=== PATIENT | female | born 1965 | race American Indian/Alaskan Native ===

== ENCOUNTER 2018-04-13 08:38 | Day surgery (SDC) | payer BC ==
[2018-04-13 09:33] VITALS: O2SAT 100
--- NOTE | 2018-04-13 10:09 | CP.SDSHP ---
Same Day Surgery H & P - History Proposed Procedure: colonoscopy Pre-Op Diagnosis: screening - Previous Medical/Surgical History Cardiac: Hypertension Endocrine/Metabolic: Obesity - Allergies Allergies: Allergies No Known Allergies Allergy (Verified 04/13/18 09:00) - Physical Exam General Appearance: NAD Vital Signs: Vital Signs 04/13/18 09:00 Temperature 97.8 F Pulse Rate 70 Respiratory 18 Rate Blood Pressure 152/88 H O2 Sat by Pulse 100 Oximetry Mental Status: Alert & Oriented x3 Neuro: WNL Heart: WNL Lungs: WNL GI: WNL - {Optional Preform as Required} Abdomen: WNL - Impression Pt. Evaluated Today:Candidate for Anesthesia & Procedure: Yes - Date & Time Date: 04/13/18 Time: 10:09 Short Stay Discharge - Short Stay Discharge Admitting Diagnosis/Reason for Visit: ENCOUNTER FOR SCREENING FOR MALIGNANT NEOPLASM OF Disposition: HOME/ ROUTINE
[2018-04-13] MEDS ORDERED: Propofol 10 mg/ml Inj (20 ML) ONE ×2 (10:10→10:29)
[2018-04-13] MEDS ORDERED: Lidocaine Hydrochloride 5 ML INJ ONE (10:11)
[2018-04-13 10:55] VITALS: TEMP 98.2
[2018-04-13 11:30] VITALS: BP 164/110; PULSE 78; RESP 18
== END 2018-04-13 11:57 | disposition home or self-care (01) ==
LOC: C.ENDO 08:38
PROVIDERS: ATTEND Internal Medicine Gastroenterology
DX: K64.8 Other hemorrhoids (principal)
CPT/HCPCS: 45378; J2704

== ENCOUNTER 2019-01-22 11:42 | Observation (INO) | payer BC ==
--- NOTE | 2019-01-22 13:05 | C.PDOC ---
History Of Present Illness 53 y/o female with a PMHx of HTN, hypercholesterolemia, and smoking, comes in to the ED for evaluation of chest pain that started last night around 9PM. Pain is localized under the left breast, described as sharp and stabbing. Associated with SOB. Pain worsens with palpation and on deep inspiration. Patient reports this is a first time occurrence, denies having had chest pain in the past. Denies any recent trauma or fall. No recent surgery. No family hx of blood clots or hemoptysis. Otherwise patient denies any fever, chills, night sweats, dizziness, headache, abdominal pain, back pain, nausea, vomiting, or change in bowel movements. Time Seen by Provider: 01/22/19 13:04 Chief Complaint (Nursing): Chest Pain History Per: Patient History/Exam Limitations: no limitations Onset/Duration Of Symptoms: Days (x 1) Current Symptoms Are (Timing): Still Present Associated Symptoms: Dyspnea Exacerbating Factors: Deep Breathing Alleviating Factors: None Recent travel outside of the [place]: No Past Medical History Reviewed: Historical Data, Nursing Documentation, Vital Signs Vital Signs: Last Vital Signs Temp 98.3 F 01/22/19 11:55 Pulse 73 01/22/19 11:55 Resp 22 01/22/19 11:55 BP 150/106 H 01/22/19 11:55 Pulse Ox 100 01/22/19 11:55 - Medical History PMH: HTN, Hypercholesterolemia Denies: Chronic Kidney Disease Family History: States: No Known Family Hx - Social History Hx Tobacco Use: Yes Hx Alcohol Use: Yes Hx Substance Use: No - Immunization History Hx Tetanus Toxoid Vaccination: No Hx Influenza Vaccination: No Hx Pneumococcal Vaccination: No Review Of Systems Constitutional: Negative for: Fever, Chills, Sweats, Weakness Eyes: Negative for: Vision Change ENT: Negative for: Ear Pain, Ear Discharge, Nose Pain, Nose Congestion, Mouth Pain Cardiovascular: Positive for: Chest Pain. Negative for: Palpitations Respiratory: Positive for: Shortness of Breath. Negative for: Cough, Wheezing Gastrointestinal: Negative for: Nausea, Vomiting, Abdominal Pain, Diarrhea Genitourinary: Negative for: Dysuria, Frequency Musculoskeletal: Negative for: Back Pain Skin: Negative for: Rash Neurological: Negative for: Weakness, Numbness, Headache, Dizziness Physical Exam - Physical Exam Appears: Non-toxic, No Acute Distress Skin: Warm, Dry, No Diaphoretic Head: Atraumatic, Normacephalic Eye(s): bilateral: Normal Inspection, PERRL, EOMI Nose: Normal Oral Mucosa: Moist Throat: Normal, No Erythema, No Exudate Neck: Trachea Midline, No Midline Cervical Tenderness, Supple, Other (No meningeal signs) Lymphatic: Normal Exam, No Adenopathy Chest: Symmetrical, Tenderness (Reproducible chest pain on palpation of chest wall) Cardiovascular: Rhythm Regular, No Friction Rub, No Murmur Respiratory: No Rales, No Rhonchi, No Wheezing Gastrointestinal/Abdominal: Soft, No Tenderness, No Mass, No Distention, No Guarding Back: Normal Inspection, No CVA Tenderness, No Vertebral Tenderness Extremity: No Swelling Extremity: Bilateral: Normal Color And Temperature Pulses: Left Dorsalis Pedis: Normal, Right Dorsalis Pedis: Normal Neurological/Psych: Oriented x3, Normal Speech, Normal Cognition, Normal Motor Gait: Steady ED Course And Treatment - Laboratory Results Result Diagrams: 01/22/19 13:32 01/22/19 13:32 ECG: Interpreted By Mo ECG Rhythm: Sinus Rhythm Interpretation Of ECG: No STEMI Rate From EC O2 Sat by Pulse Oximetry: 100 (on RA) Pulse Ox Interpretation: Normal Medical Decision Making Medical Decision Makin53 y/o female with a PMHx of HTN, hypercholesterolemia, smoking, comes in to the ED for evaluation of sharp stabbing chest pain, under left breast, onset last night around 9PM. Associated with SOB. Pain worsens with palpation and on deep inspiration. ASA ordered, no chest pain radiating to back. Lungs CTA b/l. Impression: PE vs chest wall pain vs ACS Heart score: 4+ Age: 1 RF: 2 Story: 1 EK Trop: pending EK, nsr, no stemi Plan: - Labs - EKG - CTA chest - NS IV fluids - ASA 325 x 1 - Reassess 1200 Elevated Cr- VQ scan ordered. CXR ordered. labs otherwise largely unremarkable pt in NAD. 1416 trop unremarkable Appreciate consult w/ Dr. Lopez: to admit to her service. Pt in NAD, agreeable to plan. CXR unremarkable: reviewed by myself Disposition - Disposition Disposition Time: 14:19 Condition: STABLE Forms: [facility] (Albanian) - Clinical Impression Clinical Impression: Chest pain, Pleuritic pain
[2019-01-22] MEDS ORDERED: Sodium Chloride 0.9% 1,000 ML IV SCH (13:15)
[2019-01-22 13:40] LABS: BASO # 0.1 K/uL (0.0-0.2); BASO % 1.1 % (0.0-2.0); EOS # 0.1 K/uL (0.0-0.7); EOS % 1.2 % (0.0-4.0); LYMPH # 1.5 K/uL (1.0-4.3); LYMPH % 30.3 % (20.0-40.0); MEAN CELL VOLUME 97.1 fL (81.0-99.0); MEAN CORPUSCULAR HEMOGLOBIN 31.8 pg (27.0-31.0); MEAN CORPUSCULAR HGB CONC 32.8 g/dL (33.0-37.0); MEAN PLATELET VOLUME 8.2 fL (7.2-11.7); MONO # 0.5 K/uL (0.0-0.8); MONO % 11.1 % (0.0-10.0); NEUT # 2.8 K/uL (1.8-7.0); NEUT % 56.3 % (50.0-75.0); NRBC % 0.1 % (0.0-2.0); RBC 3.76 Mil/uL (3.80-5.20); WHITE BLOOD COUNT 4.9 K/uL (4.8-10.8)
[2019-01-22] MEDS ORDERED: Sodium Chloride 0.9% 1,000 ML ONE (13:43)
[2019-01-22 13:55] LABS: ALB/GLOB RATIO 1.4 (1.0-2.1); ALBUMIN 4.1 g/dL (3.5-5.0); ALT/SGPT 12 U/L (9-52); AST/SGOT 28 U/L (14-36); BLOOD UREA NITROGEN 36 mg/dL (7-17); CALCIUM 8.6 mg/dl (8.6-10.4); GFR NON-AFRICAN AMERICAN 26
[2019-01-22 14:04] LABS: B-TYPE NATRIURETIC PEPTIDE 284 pg/mL (0-900)
--- NOTE | 2019-01-22 14:35 | CP.PCM.HP ---
<Ketty Gil - Last Filed: 01/22/19 16:47> History of Present Illness - History of Present Illness History of Present Illness: CC: Left rib pain Patient is a 53 year old female with pmhx of HTN, hypertensive nephropathy, HLD, osteopenia who presents to ED today for evaluation of left lower rib pain. Pt reports pain started Tuesday evening while pt was at a [employer] party. She reports episodes of pain were initially intermittent, however have increased in frequency and severity. She describes the pain as stabbing, 10/10, worse with movement, coughing and deep inspiration. Patient reports similar symptoms 23 years ago after pt sustained rib fractures 2/2 trauma. Patient denies any inciting event including trauma, denies prolonged sedentary activity or prior history of clots. Patient denies chest pain, palpitations, radiating pain to arms/neck/jaw, nausea, LE pain/edema. 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, social alcohol, no drugs, school worker Present on Admission - Present on Admission Any Indicators Present on Admission: No Review of Systems - Constitutional Constitutional: absent: Chills, Fever - EENT Eyes: absent: Blurred Vision Nose/Mouth/Throat: absent: Dysphagia, Neck Pain - Cardiovascular Cardiovascular: absent: Chest Pain, Dyspnea, Pain Radiating to Arm/Neck/Jaw, Palpitations, Pedal Edema - Respiratory Respiratory: Cough (chronic), Pain on Inspiration, Pain with Coughing - Gastrointestinal Gastrointestinal: absent: Abdominal Pain, Dyspepsia, Heartburn, Nausea - Musculoskeletal Musculoskeletal: Limited Range of Motion (2/2 pain) - Neurological Neurological: absent: Headaches Past Patient History - Past Medical History & Family History Past Medical History?: Yes - Past Social History Smoking Status: Heavy Smoker > 10 Cigarettes Daily - CARDIAC Hx Hypercholesterolemia: Yes Hx Hypertension: Yes - PULMONARY Hx Respiratory Disorders: No - NEUROLOGICAL Hx Neurological Disorder: No - HEENT Hx HEENT Problems: No - RENAL Hx Chronic Kidney Disease: No - ENDOCRINE/METABOLIC Hx Endocrine Disorders: No - HEMATOLOGICAL/ONCOLOGICAL Hx Blood Disorders: No - INTEGUMENTARY Hx Dermatological Problems: No - MUSCULOSKELETAL/RHEUMATOLOGICAL Hx Musculoskeletal Disorders: No - GASTROINTESTINAL Hx Gastrointestinal Disorders: No - GENITOURINARY/GYNECOLOGICAL Hx Genitourinary Disorders: No - PSYCHIATRIC Hx Substance Use: No - SURGICAL HISTORY Hx Surgeries: Yes Hx Section: Yes (X3) Hx Gastric Bypass Surgery: Yes (LAP BAND) Hx Herniorrhaphy: Yes (X2 WITH MESH, HAS VENTRAL HERNIA AT PRESENT) Other/Comment: CYSTOSCOPY - ANESTHESIA Hx Anesthesia: Yes Hx Anesthesia Reactions: No Meds Home Medications: Home Medication List Medication Instructions Recorded Confirmed Type Aspirin [Adult Low Dose Aspirin EC] 81 mg PO DAILY #30 tablet. 01/23/19 Rx Atorvastatin Calcium 20 mg PO DAILY #30 tablet 01/23/19 Rx Labetalol [Trandate] 200 mg PO TID 30 Days tab 01/23/19 Rx Allergies/Adverse Reactions: Allergies Allergy/AdvReac Type Severity Reaction Status Date / Time No Known Allergies Allergy Verified 01/22/19 11:59 Physical Exam - Constitutional Appears: Non-toxic, No Acute Distress - Head Exam Head Exam: ATRAUMATIC, NORMAL INSPECTION, NORMOCEPHALIC - Eye Exam Eye Exam: EOMI, Normal appearance - ENT Exam ENT Exam: Mucous Membranes Moist, Normal Exam - Neck Exam Neck exam: Positive for: Normal Inspection - Respiratory Exam Respiratory Exam: Chest Wall Tenderness, Decreased Breath Sounds, NORMAL BREATHING PATTERN. absent: Wheezes Additional comments: TTP left lower rib, costochondral insertion later to mid clavicular - Cardiovascular Exam Cardiovascular Exam: REGULAR RHYTHM, +S1, +S2. absent: Tachycardia - GI/Abdominal Exam GI & Abdominal Exam: Normal Bowel Sounds, Soft. absent: Distended, Tenderness Additional comments: vertical incision, well healed - Extremities Exam Extremities exam: Positive for: normal inspection. Negative for: calf tenderness, pedal edema - Neurological Exam Neurological exam: Alert, Oriented x3 - Psychiatric Exam Psychiatric exam: Normal Affect, Normal Mood - Skin Skin Exam: Dry, Intact, Normal Color, Warm Results - Vital Signs Recent Vital Signs: Last Vital Signs Temp 98.3 F 01/22/19 11:55 Pulse 69 01/22/19 13:44 Resp 19 01/22/19 13:44 BP 140/95 H 01/22/19 13:44 Pulse Ox 100 01/22/19 14:20 - Labs Result Diagrams: 01/22/19 13:32 01/22/19 13:32 Labs: Laboratory Results - last 24 hr 01/22/19 01/22/19 13:32 13:32 WBC 4.9 RBC 3.76 L Hgb 12.0 Hct 36.5 MCV 97.1 MCH 31.8 H MCHC 32.8 L RDW 14.0 Plt Count 327 MPV 8.2 Neut % (Auto) 56.3 Lymph % (Auto) 30.3 [place] % (Auto) 11.1 H Eos % (Auto) 1.2 Baso % (Auto) 1.1 Neut # (Auto) 2.8 Lymph # (Auto) 1.5 [place] # (Auto) 0.5 Eos # (Auto) 0.1 Baso # (Auto) 0.1 Sodium 138 Potassium 4.3 Chloride 106 Carbon Dioxide 24 Anion Gap 13 BUN 36 H Creatinine 2.0 H Est GFR ( Amer) 32 Est GFR (Non-Af Amer) 26 Random Glucose 104 Calcium 8.6 Total Bilirubin 0.5 AST 28 ALT 12 Alkaline Phosphatase 131 H Troponin I < 0.0120 NT-Pro-B Natriuret Pep 284 Total Protein 7.0 Albumin 4.1 Globulin 2.9 Albumin/Globulin Ratio 1.4 Assessment & Plan - Assessment and Plan (Free Text) Assessment: 53 year old female w/ pmhx of HTN, hypertensive nephropathy, HLD, osteopenia admitted for evaluation of chest pain Plan: Chest pain EKG: NSR, LVH Troponin x1 negative, f/u remaining pBNP 284 CXR: no acute pathology V/Q: low probability of PE HTN continue home med, labetalol 200mg po TID hold IVF HHD, low Na+ CKD avoid nephrotoxic drugs/imaging HLD home home lipitor 20, start crestor 10mg HS f/u lipid panel Ppx VTE: heparin 5000 q8 GI: protonix Dispo: Symptoms more likely consistent with costchondritis. D/C pending acute cardio/pulm workup Discussed w/ Dr. Rosas -Ketty Gil, PGY-1 <Nelly Rosas - Last Filed: 01/28/19 11:54> Results - Vital Signs Recent Vital Signs: Last Vital Signs Temp 98.3 F 01/23/19 07:25 Pulse 80 01/23/19 13:29 Resp 20 01/23/19 07:25 BP 151/90 H 01/23/19 07:25 Pulse Ox 100 01/23/19 07:25 - Labs Result Diagrams: 01/23/19 04:19 01/23/19 04:19 Attending/Attestation - Attestation I have personally seen and examined this patient.: Yes I have fully participated in the care of the patient.: Yes I have reviewed all pertinent clinical information: Yes Notes (Text): seen and examined by me 1.chest pain 2.CRF 3.HTN Assessment and the plan discussed with the resident
--- NOTE | 2019-01-22 14:37 | RAD ---
Date of service: 01/22/2019 HISTORY: Chest pain COMPARISON: Comparison made with prior chest radiograph 03/09/2018 TECHNIQUE: Chest PA and lateral views FINDINGS: LUNGS: No active pulmonary disease. PLEURA: No significant pleural effusion identified. No pneumothorax apparent. CARDIOVASCULAR: No aortic atherosclerotic calcification present. Normal cardiac size. No pulmonary vascular congestion. OSSEOUS STRUCTURES: No significant abnormalities. VISUALIZED UPPER ABDOMEN: Note again made of in situ gastric band hardware OTHER FINDINGS: None. IMPRESSION: No active disease
[2019-01-22] MEDS ORDERED: Pantoprazole 40 mg EC Tab PO ONE (15:32)
[2019-01-22] MEDS: Pantoprazole 40 mg EC Tab PO SCH (15:32)
--- NOTE | 2019-01-22 15:53 | NM ---
Date of service: 01/22/2019 COMPARISON: January 22, 2019 TECHNIQUE: 13.2 mCi technetium 99-m Xe-133 Gas. 3.7 mCI technetium 99-m MAA administered intravenously. FINDINGS: VENTILATION COMPONENT: Normal. PERFUSION COMPONENT: Heterogeneous distribution of radionuclide. No geographic, segmental, lobar abnormalities apparent on the present examination. IMPRESSION: Low probability ventilation perfusion scan for pulmonary embolism.
[2019-01-22 15:56] LABS: CK-MB 0.79 ng/mL (0.0-3.38)
[2019-01-22 20:33] LABS: CK-MB 0.76 ng/mL (0.0-3.38)
[2019-01-23 01:41] VITALS: RESP 20
[2019-01-23 04:23] LABS: BASO % 0.8 % (0.0-2.0); EOS # 0.1 K/uL (0.0-0.7); EOS % 2.1 % (0.0-4.0); HEMOGLOBIN 10.9 g/dL (11.0-16.0); LYMPH # 1.9 K/uL (1.0-4.3); LYMPH % 42.2 % (20.0-40.0); MEAN CELL VOLUME 96.7 fL (81.0-99.0); MEAN CORPUSCULAR HEMOGLOBIN 30.8 pg (27.0-31.0); MEAN CORPUSCULAR HGB CONC 31.9 g/dL (33.0-37.0); MEAN PLATELET VOLUME 8.2 fL (7.2-11.7); MONO # 0.5 K/uL (0.0-0.8); MONO % 10.6 % (0.0-10.0); NEUT # 1.9 K/uL (1.8-7.0); NEUT % 44.3 % (50.0-75.0); RBC 3.53 Mil/uL (3.80-5.20); RED CELL DISTRIBUTION WIDTH 14.1 % (11.5-14.5); WHITE BLOOD COUNT 4.4 K/uL (4.8-10.8)
[2019-01-23 04:58] VITALS: O2SAT 100
[2019-01-23 05:24] LABS: PROTHROMBIN TIME 11.1 SECONDS (9.7-12.2)
[2019-01-23 05:45] LABS: CK-MB 0.65 ng/mL (0.0-3.38)
[2019-01-23 06:00] LABS: ALB/GLOB RATIO 1.3 (1.0-2.1); ALBUMIN 3.3 g/dL (3.5-5.0); ALT/SGPT 21 U/L (9-52); AST/SGOT 26 U/L (14-36); BLOOD UREA NITROGEN 31 mg/dL (7-17); CALCIUM 8.7 mg/dl (8.6-10.4); GFR NON-AFRICAN AMERICAN 23
--- NOTE | 2019-01-23 07:47 | CP.PCM.DIS ---
<Junior Bjearano - Last Filed: 01/23/19 15:42> Provider - Provider Date of Admission: 01/22/19 14:15 Attending physician: Nelly Rosas MD Time Spent in preparation of Discharge (in minutes): 40 Diagnosis - Discharge Diagnosis (1) Costochondral pain Status: Acute Hospital Course - Lab Results Lab Results: Most Recent Lab Values WBC 4.4 K/uL (4.8-10.8) L 01/23/19 04:19 RBC 3.53 Mil/uL (3.80-5.20) L 01/23/19 04:19 Hgb 10.9 g/dL (11.0-16.0) L 01/23/19 04:19 Hct 34.1 % (34.0-47.0) 01/23/19 04:19 MCV 96.7 fL (81.0-99.0) 01/23/19 04:19 MCH 30.8 pg (27.0-31.0) 01/23/19 04:19 MCHC 31.9 g/dL (33.0-37.0) L 01/23/19 04:19 RDW 14.1 % (11.5-14.5) 01/23/19 04:19 Plt Count 277 K/uL (130-400) 01/23/19 04:19 MPV 8.2 fL (7.2-11.7) 01/23/19 04:19 Neut % (Auto) 44.3 % (50.0-75.0) L 01/23/19 04:19 Lymph % (Auto) 42.2 % (20.0-40.0) H 01/23/19 04:19 [place] % (Auto) 10.6 % (0.0-10.0) H 01/23/19 04:19 Eos % (Auto) 2.1 % (0.0-4.0) 01/23/19 04:19 Baso % (Auto) 0.8 % (0.0-2.0) 01/23/19 04:19 Neut # (Auto) 1.9 K/uL (1.8-7.0) 01/23/19 04:19 Lymph # (Auto) 1.9 K/uL (1.0-4.3) 01/23/19 04:19 [place] # (Auto) 0.5 K/uL (0.0-0.8) 01/23/19 04:19 Eos # (Auto) 0.1 K/uL (0.0-0.7) 01/23/19 04:19 Baso # (Auto) 0.0 K/uL (0.0-0.2) 01/23/19 04:19 PT 11.1 SECONDS (9.7-12.2) 01/23/19 04:19 INR 1.0 01/23/19 04:19 APTT 29 SECONDS (21-34) 01/23/19 04:19 Sodium 136 mmol/L (132-148) 01/23/19 04:19 Potassium 4.2 mmol/L (3.6-5.2) 01/23/19 04:19 Chloride 110 mmol/L (98-107) H 01/23/19 04:19 Carbon Dioxide 20 mmol/L (22-30) L 01/23/19 04:19 Anion Gap 10 (10-20) 01/23/19 04:19 BUN 31 mg/dL (7-17) H 01/23/19 04:19 Creatinine 2.2 mg/dL (0.7-1.2) H 01/23/19 04:19 Est GFR ( Amer) 28 01/23/19 04:19 Est GFR (Non-Af Amer) 23 01/23/19 04:19 Random Glucose 96 mg/dL (65-105) 01/23/19 04:19 Calcium 8.7 mg/dl (8.6-10.4) 01/23/19 04:19 Total Bilirubin 0.5 mg/dL (0.2-1.3) 01/23/19 04:19 AST 26 U/L (14-36) 01/23/19 04:19 ALT 21 U/L (9-52) 01/23/19 04:19 Alkaline Phosphatase 123 U/L (38-126) 01/23/19 04:19 Total Creatine Kinase 85 U/L (30-135) 01/23/19 04:19 CK-MB (Mass) 0.65 ng/mL (0.0-3.38) 01/23/19 04:19 Troponin I < 0.0120 ng/mL (0.00-0.120) 01/23/19 04:19 NT-Pro-B Natriuret Pep 284 pg/mL (0-900) 01/22/19 13:32 Total Protein 5.9 g/dL (6.3-8.3) L 01/23/19 04:19 Albumin 3.3 g/dL (3.5-5.0) L 01/23/19 04:19 Globulin 2.6 gm/dL (2.2-3.9) 01/23/19 04:19 Albumin/Globulin Ratio 1.3 (1.0-2.1) 01/23/19 04:19 Triglycerides 112 mg/dL (0-149) D 01/22/19 13:32 Cholesterol 126 mg/dL (0-199) 01/22/19 13:32 LDL Cholesterol Direct 58 mg/dL (0-129) 01/22/19 13:32 HDL Cholesterol 64 mg/dL (30-70) 01/22/19 13:32 Lipase 29 U/L (23-300) 01/22/19 13:32 - Hospital Course Hospital Course: HPI: Patient is a 53 year old female with past medical history of hypertension, hypertensive nephropathy, hyperlipidemia, osteopenia who presents to ED today for evaluation of left lower rib pain. She reports pain that started Tuesday evening while she was at a [employer] party. She reports episodes of pain were initially intermittent, however have increased in frequency and severity. She describes the pain as stabbing, 10/10, worse with movement, coughing and deep inspiration. Patient reports similar symptoms 23 years ago after patient sustained rib fractures secondary to trauma. Patient denies any inciting event including trauma, denies prolonged sedentary activity or prior history of clots. Patient denies chest pain, palpitations, radiating pain to arms/neck/jaw, nausea, lower extremity pain/edema. During course of hospital admission: Chest Xray obtained showed no acute findings, no evidence of fractures. Initial EKG obtained demonstrated normal sinus rhythm with no evidence of ST or T wave changes. Serial troponin series obtained were within normal limits. BNP on admission was within normal limits. V/Q Scan ordered by ED demonstrated low probability of pulmonary embolus. Home meds were restarted and patient was monitored overnight for pain likely musculoskeletal in origin. Tylenol was given for pain as needed. Patient endorsed improvement of pain during hospital course, with no inciting events. Patient is medically stable for discharge to home, as per Dr. Rosas. She is instructed to follow up with her primary care provider (Dr. Navarro) within 1 week of discharge for further monitoring and management of all chronic medical conditions. Given patient's renal function, patient was instructed to take Tylenol as needed for musculoskeletal-type pain in lieu of NSAIDs. Patient was also instructed to rest adequately, limit strenuous activity and/or exercise to involved muscles. If symptoms worsen or recur, please return to the ED immediately. The following is a summary of hospital course. For full detail, please refer to EMR. - Date & Time of H&P Date of H&P: 01/23/19 Time of H&P: 15:42 Discharge Exam - Head Exam Head Exam: ATRAUMATIC, NORMAL INSPECTION, NORMOCEPHALIC - Eye Exam Eye Exam: EOMI, Normal appearance, PERRL Pupil Exam: NORMAL ACCOMODATION - ENT Exam ENT Exam: Mucous Membranes Moist, Normal Exam - Neck Exam Neck exam: Full Rom, Normal Inspection - Respiratory Exam Respiratory Exam: Clear to PA & Lateral, NORMAL BREATHING PATTERN, UNREMARKABLE. absent: Accessory Muscle Use, Rales, Rhonchi, Wheezes, Respiratory Distress, Stridor - Cardiovascular Exam Cardiovascular Exam: REGULAR RHYTHM, +S1, +S2 - GI/Abdominal Exam GI & Abdominal Exam: Normal Bowel Sounds, Soft, Unremarkable. absent: Distended, Firm, Guarding, Rebound, Rigid, Tenderness - Extremities Exam Extremities exam: full ROM, normal capillary refill, normal inspection, pedal pulses present - Back Exam Back exam: NORMAL INSPECTION - Neurological Exam Neurological exam: Alert, CN II-XII Intact, Normal Gait, Oriented x3 - Skin Skin Exam: Dry, Intact, Normal Color, Warm Discharge Plan - Discharge Medications Prescriptions: Aspirin [Adult Low Dose Aspirin EC] 81 mg PO DAILY #30 tablet. Atorvastatin Calcium 20 mg PO DAILY #30 tablet Labetalol [Trandate] 200 mg PO TID 30 Days tab - Follow Up Plan Condition: STABLE Disposition: HOME/ ROUTINE Instructions: Heart Healthy Diet, Chest Pain That Is Not Caused by the Heart (DC), Chest Pain (DC), Diet and Health, Aspirin, Atorvastatin, Labetalol Additional Instructions: Patient is medically stable for discharge to home, as per Dr. Rosas. Please take all home medications as currently prescribed. She is instructed to follow up with her primary care provider (Dr. Navarro) within 1 week of discharge for further monitoring and management of all chronic medical conditions. Please also follow up with your [employer] for follow-up monitoring of creatinine level within 1 week. Given patient's renal function, patient was instructed to take Tylenol as needed for musculoskeletal-type pain in lieu of NSAIDs. Patient was also instructed to rest adequately, limit strenuous activity and/or exercise to involved muscles. If symptoms worsen or recur, please return to the ED immediately. Referrals: Krystina Navarro MD [Staff Provider] - <Nelly Rosas - Last Filed: 01/28/19 16:44> Provider - Provider Date of Admission: 01/22/19 14:15 Attending physician: Nelly Rosas MD Hospital Course - Lab Results Lab Results: Most Recent Lab Values WBC 4.4 K/uL (4.8-10.8) L 01/23/19 04:19 RBC 3.53 Mil/uL (3.80-5.20) L 01/23/19 04:19 Hgb 10.9 g/dL (11.0-16.0) L 01/23/19 04:19 Hct 34.1 % (34.0-47.0) 01/23/19 04:19 MCV 96.7 fL (81.0-99.0) 01/23/19 04:19 MCH 30.8 pg (27.0-31.0) 01/23/19 04:19 MCHC 31.9 g/dL (33.0-37.0) L 01/23/19 04:19 RDW 14.1 % (11.5-14.5) 01/23/19 04:19 Plt Count 277 K/uL (130-400) 01/23/19 04:19 MPV 8.2 fL (7.2-11.7) 01/23/19 04:19 Neut % (Auto) 44.3 % (50.0-75.0) L 01/23/19 04:19 Lymph % (Auto) 42.2 % (20.0-40.0) H 01/23/19 04:19 [place] % (Auto) 10.6 % (0.0-10.0) H 01/23/19 04:19 Eos % (Auto) 2.1 % (0.0-4.0) 01/23/19 04:19 Baso % (Auto) 0.8 % (0.0-2.0) 01/23/19 04:19 Neut # (Auto) 1.9 K/uL (1.8-7.0) 01/23/19 04:19 Lymph # (Auto) 1.9 K/uL (1.0-4.3) 01/23/19 04:19 [place] # (Auto) 0.5 K/uL (0.0-0.8) 01/23/19 04:19 Eos # (Auto) 0.1 K/uL (0.0-0.7) 01/23/19 04:19 Baso # (Auto) 0.0 K/uL (0.0-0.2) 01/23/19 04:19 PT 11.1 SECONDS (9.7-12.2) 01/23/19 04:19 INR 1.0 01/23/19 04:19 APTT 29 SECONDS (21-34) 01/23/19 04:19 Sodium 136 mmol/L (132-148) 01/23/19 04:19 Potassium 4.2 mmol/L (3.6-5.2) 01/23/19 04:19 Chloride 110 mmol/L (98-107) H 01/23/19 04:19 Carbon Dioxide 20 mmol/L (22-30) L 01/23/19 04:19 Anion Gap 10 (10-20) 01/23/19 04:19 BUN 31 mg/dL (7-17) H 01/23/19 04:19 Creatinine 2.2 mg/dL (0.7-1.2) H 01/23/19 04:19 Est GFR ( Amer) 28 01/23/19 04:19 Est GFR (Non-Af Amer) 23 01/23/19 04:19 Random Glucose 96 mg/dL (65-105) 01/23/19 04:19 Calcium 8.7 mg/dl (8.6-10.4) 01/23/19 04:19 Total Bilirubin 0.5 mg/dL (0.2-1.3) 01/23/19 04:19 AST 26 U/L (14-36) 01/23/19 04:19 ALT 21 U/L (9-52) 01/23/19 04:19 Alkaline Phosphatase 123 U/L (38-126) 01/23/19 04:19 Total Creatine Kinase 85 U/L (30-135) 01/23/19 04:19 CK-MB (Mass) 0.65 ng/mL (0.0-3.38) 01/23/19 04:19 Troponin I < 0.0120 ng/mL (0.00-0.120) 01/23/19 04:19 NT-Pro-B Natriuret Pep 284 pg/mL (0-900) 01/22/19 13:32 Total Protein 5.9 g/dL (6.3-8.3) L 01/23/19 04:19 Albumin 3.3 g/dL (3.5-5.0) L 01/23/19 04:19 Globulin 2.6 gm/dL (2.2-3.9) 01/23/19 04:19 Albumin/Globulin Ratio 1.3 (1.0-2.1) 01/23/19 04:19 Triglycerides 112 mg/dL (0-149) D 01/22/19 13:32 Cholesterol 126 mg/dL (0-199) 01/22/19 13:32 LDL Cholesterol Direct 58 mg/dL (0-129) 01/22/19 13:32 HDL Cholesterol 64 mg/dL (30-70) 01/22/19 13:32 Lipase 29 U/L (23-300) 01/22/19 13:32 Attending/Attestation - Attestation I have personally seen and examined this patient.: Yes I have fully participated in the care of the patient.: Yes I have reviewed all pertinent clinical information, including history, physical exam and plan: Yes
[2019-01-23 07:58] VITALS: BP 151/90; TEMP 98.3
[2019-01-23] MEDS: Pantoprazole 40 mg EC Tab PO SCH (09:30)
[2019-01-23] MEDS ORDERED: Pneumococcal 23-Valent Vaccine IM ONE (10:00)
[2019-01-23 13:55] VITALS: PULSE 80
--- NOTE | 2019-01-24 21:27 | CARD ---
APPROVED REPORT Date of service: 01/22/2019 EKG Measurement Heart [id number] <Conclusion> Normal sinus rhythm Possible Left atrial enlargement Left ventricular hypertrophy Abnormal ECG
== END 2019-01-23 14:26 | disposition home or self-care (01) ==
LOC: C.ER 11:42 → C.9E 14:15 → C.6T 15:43
PROVIDERS: ADMIT Internal Medicine; ATTEND Internal Medicine
DX: R07.81 Pleurodynia (principal); E78.5 Hyperlipidemia, unspecified; I12.9 Hypertensive chronic kidney disease with stage 1 through stage 4 chronic kidney disease, or unspecified chronic kidney disease; M85.80 Other specified disorders of bone density and structure, unspecified site; N18.9 Chronic kidney disease, unspecified; F17.210 Nicotine dependence, cigarettes, uncomplicated; E78.00 Pure hypercholesterolemia, unspecified; Z98.84 Bariatric surgery status
CPT/HCPCS: 36415; 71046; 78582; 80053; 80061; 82553; 83690; 83880; 84484; 85025; 85610; 85730; 90732; 93005; 96372; 96374; 97116; 97161; 99285; A9540; G0009; G0378; G8978; G8979; G8980; J1644; J2270; J7030